=== PATIENT | female | born 2000 | race Caucasian/White ===

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

== ENCOUNTER 2022-01-23 12:14 | Emergency (ER) | payer MEDICAID ==
[~2022-01-23] VITALS: Ht 157.5 cm; Wt 60.0 kg
[~2022-01-23 12:14] MED LIST changes: +ZOFRAN4 MG/TAB PO
[2022-01-23 12:53] VITALS: BP 121/71
== END 2022-01-23 12:58 | disposition home or self-care (01) ==
LOC: ED 12:14
DX: O26.899 Other specified pregnancy related conditions, unspecified trimester (principal); R11.0 Nausea; N64.4 Mastodynia; O99.330 Smoking (tobacco) complicating pregnancy, unspecified trimester; F17.200 Nicotine dependence, unspecified, uncomplicated; Z3A.00 Weeks of gestation of pregnancy not specified

== ENCOUNTER 2022-03-03 10:08 | Emergency (ER) | payer MEDICAID ==
[~2022-03-03] VITALS: Ht 157.5 cm; Wt 63.6 kg
[2022-03-03 10:29] VITALS: BP 117/68
[2022-03-03 10:45] VITALS: BP 107/64
[2022-03-03 11:00] VITALS: BP 113/69
[2022-03-03 11:15] VITALS: BP 114/70
[2022-03-03 11:27] VITALS: BP 114/70
== END 2022-03-03 11:47 | disposition home or self-care (01) ==
LOC: ED 10:08
DX: O99.511 Diseases of the respiratory system complicating pregnancy, first trimester (principal); J06.9 Acute upper respiratory infection, unspecified; O99.331 Smoking (tobacco) complicating pregnancy, first trimester; F17.200 Nicotine dependence, unspecified, uncomplicated; Z3A.12 12 weeks gestation of pregnancy; Z20.822 Contact with and (suspected) exposure to COVID-19

== ENCOUNTER 2022-06-23 07:53 | Emergency (ER) | payer OTHER ==
[~2022-06-23] VITALS: Ht 157.5 cm; Wt 81.8 kg
[2022-06-23] MEDS ORDERED: SERTRALINE50 MG PO (08:04)
[2022-06-23] MEDS ORDERED: CLARITIN-D1 TA2 PO (08:05)
[2022-06-23] MEDS ORDERED: ZPAK PO (08:58)
[2022-06-23 09:10] VITALS: BP 115/72
== END 2022-06-23 09:10 | disposition home or self-care (01) ==
LOC: ED 07:53
DX: J06.9 Acute upper respiratory infection, unspecified (principal); Z20.822 Contact with and (suspected) exposure to COVID-19

== ENCOUNTER 2022-11-04 07:34 | Emergency (ER) | payer OTHER ==
[~2022-11-04] VITALS: Ht 157.5 cm; Wt 77.1 kg
[~2022-11-04 07:34] MED LIST changes: +CLARITIN-D1 TA2 PO; +SERTRALINE50 MG PO; +ZPAK PO
[2022-11-04] MEDS ORDERED: ZPAK PO ×2 (08:00→08:01)
[2022-11-04 08:04] VITALS: BP 128/73
[2022-11-04 08:13] VITALS: BP 128/73
== END 2022-11-04 08:20 | disposition home or self-care (01) ==
LOC: ED 07:34
DX: J06.9 Acute upper respiratory infection, unspecified (principal)

== ENCOUNTER 2024-01-22 09:49 | Emergency (ER) | payer OTHER ==
[~2024-01-22] VITALS: Ht 157.5 cm; Wt 68.0 kg
[~2024-01-22 09:49] MED LIST changes: +CLARITHROMYCIN500 MG PO
[2024-01-22] MEDS ORDERED: SODIUM CHLORIDE 0.9% 1,000 ML IV ONE (10:10)
[2024-01-22 10:11] LABS: URINE BILIRUBIN - DIPSTICK Negative (NEGATIVE); URINE BLOOD DIPSTICK Negative (NEGATIVE); URINE GLUCOSE - DIPSTICK Negative (NEGATIVE); URINE KETONE Negative (NEGATIVE); URINE LEUK ESTERASE Trace (NEGATIVE); URINE NITRITE - DIPSTICK Negative (Negative); URINE PH 6.5 (4.5-8.0); URINE PROTEIN - DIPSTICK Negative (NEG-TRACE); URINE UROBILINOGEN - DIPSTICK 0.2 E.U./dL (0.2)
[2024-01-22 10:13] LABS: BASO% 0.5 % (0-3); EOS% 0.6 % (0-8); HEMATOCRIT 39.3 % (37.0-47.0); HEMOGLOBIN 13.4 g/dl (12.0-16.0); IMMATURE GRANULOCYTES 0.2 % (0.0-5.0); LYMPH% 34.5 % (15-41); MEAN CELL VOLUME 90.6 fL CALC (80.0-100.0); MEAN CORPUSCULAR HGB 30.9 pG CALC (26.0-32.0); MEAN CORPUSCULAR HGB CONC 34.1 g/dL CAL (32.0-36.0); MONO% 4.4 % (2-13); NEUT# 4.94 thou/uL (2.00-7.15); NEUT% 59.8 % (42-76); RED BLOOD COUNT 4.34 mill/uL (4.20-5.60); RED CELL DISTRI WIDTH 12.8 % (11.5-15.5)
[2024-01-22 10:15] LABS: URINE COLOR Yellow
[2024-01-22 10:26] LABS: ALBUMIN 4.4 g/dL (3.2-5.0); BILIRUBIN, TOTAL 0.6 mg/dL (0.02-1.3); CREATININE 0.8 mg/dL (0.5-1.0); POTASSIUM 3.6 mmol/l (3.5-5.1); TOTAL PROTEIN 7.1 g/dL (6.3-8.2)
[2024-01-22 11:00] VITALS: BP 108/68
[2024-01-22 11:15] VITALS: BP 112/72
[2024-01-22 11:30] VITALS: BP 111/70
[2024-01-22 11:35] VITALS: BP 111/70
== END 2024-01-22 11:45 | disposition home or self-care (01) ==
LOC: ED 09:49
PROVIDERS: Family Medicine
DX: O26.891 Other specified pregnancy related conditions, first trimester (principal); R10.30 Lower abdominal pain, unspecified; Z3A.01 Less than 8 weeks gestation of pregnancy

== ENCOUNTER 2024-03-06 19:37 | Emergency (ER) | payer OTHER ==
[~2024-03-06] VITALS: Ht 157.5 cm; Wt 63.0 kg
[2024-03-06] MEDS ORDERED: SODIUM CHLORIDE 0.9% 1,000 ML IV ONE (20:05)
[2024-03-06] MEDS ORDERED: ONDANSETRON HCl 4 MG/2 ML SDV IV ONE (20:05)
[2024-03-06 20:24] LABS: BASO% 0.2 % (0-3); EOS% 0.2 % (0-8); IMMATURE GRANULOCYTES 0.5 % (0.0-5.0); LYMPH% 7.6 % (15-41); MEAN CELL VOLUME 89.4 fL CALC (80.0-100.0); MEAN CORPUSCULAR HGB 30.8 pG CALC (26.0-32.0); MEAN CORPUSCULAR HGB CONC 34.5 g/dL CAL (32.0-36.0); MONO% 10.7 % (2-13); NEUT# 4.91 thou/uL (2.00-7.15); NEUT% 80.8 % (42-76); RED BLOOD COUNT 3.57 mill/uL (4.20-5.60); RED CELL DISTRI WIDTH 13.6 % (11.5-15.5)
[2024-03-06 20:26] LABS: HEMATOCRIT 31.9 % (37.0-47.0)
[2024-03-06 20:37] LABS: ALBUMIN 4.2 g/dL (3.2-5.0); BILIRUBIN, TOTAL 0.4 mg/dL (0.02-1.3); CREATININE 0.5 mg/dL (0.5-1.0); POTASSIUM 3.4 mmol/l (3.5-5.1); TOTAL PROTEIN 6.8 g/dL (6.3-8.2)
[2024-03-06 21:40] VITALS: BP 131/71
[2024-03-06 22:26] LABS: URINE BLOOD DIPSTICK Negative (NEGATIVE); URINE GLUCOSE - DIPSTICK Negative (NEGATIVE); URINE KETONE >=160 mg/dL (NEGATIVE); URINE LEUK ESTERASE Negative (NEGATIVE); URINE NITRITE - DIPSTICK Negative (Negative); URINE PROTEIN - DIPSTICK 30 mg/dL (NEG-TRACE); URINE SPECIFIC GRAVITY >=1.030; URINE UROBILINOGEN - DIPSTICK 0.2 E.U./dL (0.2)
[2024-03-06 22:28] LABS: URINE COLOR Dark yellow
[2024-03-06 22:34] LABS: URINE MUCUS FEW hpf (NONE-FEW); URINE RBC 0-2 RBC/hpf (0-5); URINE SQUAMOUS EPITHELIAL CELL FEW EPI/hpf (0-FEW)
[2024-03-06 22:35] LABS: URINE WBC 0-2 WBC/hpf (0-5)
[2024-03-06 22:36] LABS: URINE BACTERIA RARE hpf
[2024-03-07] MEDS ORDERED: PRENATA3 PO (06:36)
== END 2024-03-06 21:40 | disposition left against medical advice (07) ==
LOC: ED 19:37
PROVIDERS: Emergency Medicine
DX: O98.511 Other viral diseases complicating pregnancy, first trimester (principal); U07.1 COVID-19; M54.50 Low back pain, unspecified; R10.30 Lower abdominal pain, unspecified; R68.83 Chills (without fever); Z3A.12 12 weeks gestation of pregnancy; Z53.29 Procedure and treatment not carried out because of patient's decision for other reasons; Z87.442 Personal history of urinary calculi; Z88.0 Allergy status to penicillin